=== PATIENT | male | born 1990 | race Caucasian/White ===

== ENCOUNTER 2016-07-01 13:07 | Inpatient (IN) | payer OTHER ==
[2016-07-01 14:01] LABS: % IMMATURE GRANULYOCYTES 0.7 % (0.0-1.1); ADD DIFF? NO; ADD MORPH? NO; ADD SCAN? NO; ATYPICAL LYMPHOCYTE FLAG 0 (0-99); FRAGMENT RBC FLAG 0 (0-99); HEMATOCRIT 49.1 % (40.0-51.0); HEMOGLOBIN 17.4 g/dL (13.7-17.5); LEFT SHIFT FLG 0 (0-99); LIPEMIA HEMOLYSIS FLAG 90 (0-99); MEAN CELL HEMOGLOBIN 29.3 pg (27.9-34.1); MEAN CELL HEMOGLOBIN CONCENTR. 35.4 g/dL (32.4-36.7); MEAN CELL VOLUME 82.7 fL (81.5-99.8); MEAN PLATELET VOLUME 9.7 fL (8.7-11.7); PLATELET CLUMPS FLAG 10 (0-99); PLATELET COUNT 301 10^3/uL (150-400); RED BLOOD CELL COUNT 5.94 10^6/uL (4.40-6.38); RED CELL DISTRIBUTION WIDTH 12.5 % (11.5-15.2)
--- NOTE | 2016-07-01 14:05 | EDPHY ---
H & P Time Seen by Provider: 07/01/16 13:44 HPI/ROS: CHIEF COMPLAINT: "I'm sorry, I don't understand the code" HISTORY OF PRESENT ILLNESS: The patient is a 26-year-old male presenting with paranoia. According to the patient's roommate, the patient came home from work yesterday and said it was a rough day. He seemed slightly out of it. This morning he seemed more out of it. He started talking about Russians and seemed paranoid. His roommate states the patient has had a similar episode in the past that has required hospitalization.When asked why he is here today, the patient responded "I'm sorry I don't understand the code". He states he was unable to sleep last night. When first asked if the patient does any drugs he responded "it doesn't matter, they will find me anyway". Patient does not use drugs. He reports occasional alcohol use. History is limited due to patient's altered mental status. REVIEW OF SYSTEMS: A comprehensive 10 point review of systems is otherwise negative aside from elements mentioned in the history of present illness. Past Medical/Surgical History: Unobtainable. Social History: Occasional alcohol. No drug use. Smoking Status: Never smoked Physical Exam: General Appearance: Alert, reluctant to talk to me Eyes: Pupils equal and round, no conjunctival pallor or injection ENT, Mouth: Mucous membranes moist Neck: Normal inspection Respiratory: Lungs are clear to auscultation Cardiovascular: Regular rate and rhythm Gastrointestinal: Abdomen is soft and non-tender Neurological: A&O, nonfocal, normal gait Skin: Warm and dry, no rash Extremities: Nontender, no pedal edema Psychiatric: Appears suspicious and paranoid Constitutional: Initial Vital Signs Heart Rate 127 H 07/01/16 13:18 Respiratory Rate 20 07/01/16 13:18 Blood Pressure 146/114 H 07/01/16 13:18 O2 Sat (%) 99 07/01/16 13:18 O2 Delivery Mode Room Air Allergies/Adverse Reactions: No Known Allergies Allergy (Verified 07/01/16 17:27) Home Medications: Medication Instructions Recorded Gabapentin [Neurontin 300 MG (*)] 300 - 600 mg PO DAILY PRN 07/01/16 Herbals/Supplements -Info Only 1 ea PO DAILY 07/01/16 Melatonin [Melatonin 3 MG (*)] 3 mg PO HS PRN 07/01/16 Multivitamins [Multivitamin (*)] 1 each PO DAILY 07/01/16 risperiDONE [Risperidone] 1 - 3 tab PO DAILY 07/01/16 Medical Decision Making ED Course/Re-evaluation: The patient was brought in by his roommate with altered mental status. The patient is very paranoid. He is unable to answer some of my questions. According to the patient's roommate the patient has had other episodes like this in the past, 1 requiring hospitalization. I placed the patient on a M1 hold. 3:00 p.m.: The patient was signed out to Dr. Bazan at shift change, pending psychiatric evaluation. - Data Points Laboratory Results: Laboratory Results 07/01/16 13:51 07/01/16 13:51 Medications Given: Discontinued Medications Gabapentin (Neurontin) 300 mg PO EDNOW ONE Stop: 07/01/16 19:32 Last Admin: 07/01/16 20:33 Dose: 300 mg Sodium Chloride (Ns) 1,000 mls @ 0 mls/hr IV ONCE ONE PRN Reason: Wide Open Stop: 07/01/16 14:40 Last Admin: 07/01/16 14:46 Dose: 1,000 mls Lorazepam (Ativan) 1 mg PO EDNOW ONE Stop: 07/01/16 15:41 Last Admin: 07/01/16 15:47 Dose: 1 mg Risperidone (Risperdal) 1 mg PO BID ASAEL Stop: 12/29/16 08:59 Last Admin: 07/02/16 08:00 Dose: 1 mg Risperidone (Risperdal) 1 mg PO DAILY ONE Stop: 07/02/16 18:14 Last Admin: 07/02/16 20:54 Dose: Not Given Risperidone (Risperdal) 2 mg PO HS ONE Stop: 07/02/16 21:01 Last Admin: 07/02/16 22:11 Dose: Not Given Risperidone (Risperdal-M) 2 mg PO ONCE ONE Stop: 07/03/16 19:01 Last Admin: 07/03/16 18:55 Dose: 2 mg Departure - Departure Disposition: [facility] IP Clinical Impression: Acute psychosis Condition: Good Report Scribed for: Tonya Day Report Scribed by: Lory Carter Date of Report: 07/01/16 Time of Report: 14:05 Physician Review and Approval Statement: 07/01/16 14:05 Portions of this note were transcribed by a medical device assembler. I personally performed the history, physical exam, and medical decision-making; and confirmed the accuracy of the information in the transcribed note.
[2016-07-01 14:28] LABS: ANION GAP 19 mEq/L (8-16); CALCIUM 10.7 mg/dL (8.5-10.4); CARBON DIOXIDE 22 mEq/l (22-31); CHLORIDE 102 mEq/L (97-110); CREATININE 0.8 mg/dL (0.7-1.3); ETHANOL SERUM < 10 mg/dL (0-10); GLOMERULAR FILTRATION RATE > 60; GLUCOSE 175 mg/dL (70-100); POTASSIUM 3.6 mEq/L (3.5-5.2); SODIUM 143 mEq/L (134-144)
[2016-07-01] MEDS ORDERED: NS 1,000 ML IV ONE (14:39)
[2016-07-01 15:15] LABS: SALICYLATE < 1.0 mg/dL (2.0-20.0)
[2016-07-01] MEDS ORDERED: LORazepam 1 MG TAB PO ONE (15:40)
[2016-07-01] MEDS ORDERED: GABAPENTIN 300 MG CAP PO ONE (19:31)
[2016-07-01] MEDS: MELATONIN 3 MG TAB PO SCH (20:33)
[2016-07-01] MEDS ORDERED: ACETAMINOPHEN 325 MG TAB PO PRN (23:05)
[2016-07-02] MEDS: MELATONIN 3 MG TAB PO PRN ×2 (03:24→23:43)
[2016-07-02] MEDS: LORazepam 0.5 MG TAB PO PRN ×2 (03:26→13:05)
[2016-07-02] MEDS: MAGNESIUM HYDROXIDE 30 ML UDCUP PO PRN (06:58)
[2016-07-02] MEDS: OLANZapine 5 MG TAB PO PRN (08:00)
[2016-07-02] MEDS ORDERED: risperiDONE 1 MG TAB PO SCH (09:00)
[2016-07-02] MEDS: MAG HYDROX/AL HYDROX/SIMETH 30 ML UDCUP PO PRN (12:54)
[2016-07-02] MEDS ORDERED: SENNOSIDES 1 TAB PO PRN (16:43)
[2016-07-02] MEDS ORDERED: risperiDONE 1 MG TAB PO ONE (18:13)
[2016-07-02] MEDS ORDERED: risperiDONE 2 MG TAB PO ONE ×2 (18:14→21:00)
--- NOTE | 2016-07-02 18:47 | BCON ---
[f rep st] BEHAVIORAL HEALTH CONSULTATION INTERNAL MEDICINE CONSULTATION DATE OF CONSULTATION: 07/02/2016 REFERRING PHYSICIAN: Aria Monteiro MD REASON FOR REFERRAL: Medical clearance for inpatient behavioral health stay. HISTORY OF PRESENT ILLNESS: The patient came to the emergency department with paranoia. He was evaluated by the mental health team and admitted for further psychiatric care. He currently complains of constipation x2-3 days and he has an itchy rash in his groin. PAST MEDICAL HISTORY: He has had right knee pain which resolved with physical therapy. He has had wisdom teeth extraction and LASIK eye surgery. MEDICATIONS: Prior to admission. 1. Melatonin 3 mg p.o. q.h.s. p.r.n. 2. Risperidone 1-3 tabs p.o. q. day. 3. Multivitamin q. day. 4. Gabapentin 300-600 mg p.o. q. day p.r.n. 5. On the [facility] evaluation, also was listed lorazepam on a p.r.n. basis. ALLERGIES: There are no known drug allergies. SOCIAL HISTORY: He is single. He lives with a roommate. He has a job. He is a nonsmoker and does not use alcohol or other substances of abuse. FAMILY HISTORY: There is apparently a history of alcohol abuse in his parents but that was remote and they are currently sober. REVIEW OF SYSTEMS: Other than as in HPI, a 10-point Review of Systems was conducted and was negative. PHYSICAL EXAMINATION: VITALS: Blood pressure is 137/92, heart rate is 120 at 1301 today. Previously, it has been in the 80s and 90s, but 127 when he was first presented. Blood pressure has ranged as high as 146/114. Respiratory rate is 20. Oxygen saturation is 95% on room air. Temperature is 35.9 degrees centigrade. His weight is 74.8 kg for a body mass index of 23. GENERAL: This is a well-nourished, well-developed man, appears his chronologic age, cooperative, and in no acute distress. HEENT: Extraocular movements are intact. Pupils are equal, round, and reactive to light. Mucous membranes are moist. Dentition is in good condition. NECK: Supple. HEART: There is a regular rate and rhythm with no murmurs, rubs, or gallops, and he is not tachycardic on exam. LUNGS: Clear to auscultation bilaterally. ABDOMEN: Soft , nontender, nondistended with normoactive bowel sounds. There is no stool mass palpated. EXTREMITIES: There is no cyanosis, clubbing, or edema. NEUROLOGIC: He is alert and oriented x3. Cranial nerves 2-12 are grossly intact. There is no focal weakness. Sensation is intact to light touch and gait is within normal limits. LABORATORY STUDIES: From the emergency department, hematology showed a CBC with elevated white blood cell count of 13.53. There was no left shift, though it was predominantly neutrophils. Otherwise, CBC was within normal limits. Serum chemistry showed a very mild anion gap of 18, glucose was elevated at 175 , and his calcium was slightly high at 10.7, otherwise renal function and electrolytes were within normal limits. Toxicology screen in the serum was negative for salicylates, acetaminophen, or ethyl alcohol. Toxicology screen in the urine was non-negative for benzodiazepines and was otherwise negative for any substances of abuse. ASSESSMENT/RECOMMENDATIONS: 1. Psychiatric issues, pending further evaluation and management by Psychiatry and the mental health team. 2. Tinea cruris. I have ordered tolnaftate powder. If it persists despite treatment, he can be re-evaluated. 3. Constipation. I have ordered senna on a p.r.n. basis which should be adequate. 4. Elevated blood pressure and leukocytosis. These are most likely due to his psychological stress. Advise continued blood pressure monitoring. If it remains elevated, would consider starting an antihypertensive. In any case, he can follow up on both of these issues with his primary care provider after his discharge. /[id number]/MODL MTDD
[2016-07-02] MEDS: TOLNAFTATE TP SCH (21:01)
[2016-07-02] MEDS: MELATONIN 3 MG TAB PO SCH (22:10)
[2016-07-02] MEDS: LORazepam 1 MG TAB PO SCH (22:10)
[2016-07-02] MEDS: GABAPENTIN 300 MG CAP PO SCH (22:10)
[2016-07-03] MEDS: LORazepam 0.5 MG TAB PO PRN ×3 (00:42→15:00)
[2016-07-03] MEDS: MAGNESIUM HYDROXIDE 30 ML UDCUP PO PRN (03:28)
--- NOTE | 2016-07-03 08:19 | BAPA ---
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 Butler- his private psychiatrist. The patient was admitted to [address] [place] [address] on an M1 hold for complaints of an acute psychotic decompensation. He self-referred to the emergency room with his roommate, was cleared medically and psychiatrically, deemed gravely disabled and sent on to [address] [place] [address] for admission. HISTORY OF PRESENT ILLNESS: The patient has a chronic history of at least 2 similar psychotic decompensations for which he was hospitalized briefly; these occurred in 2008 and 2010. The initial episode occurred as a wesley in college at [employer]. 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 Intake data suggests that both decompensations were brief and occurred in stressful context-details unclear. More recently, the patient describes a vacation trip to [place] within the past several months. He states he visited concentration camps and immersed himself in the [place] history covering the period, particularly involving the Holocaust. He states this was emotionally stressful, created anxiety and may have initiated an element of disorganized thinking. 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 More acutely, his roommate of 2 years noted the patient was complaining to him of stress at work within the last several days. The day prior to admission, the patient's roommate observed the patient manifesting a disorganized pattern of thought. The patient apparently did not sleep overnight, and on the day of admission was noted by the roommate to be loosely associated, paranoid, with worsening disorganization. The patient cooperated with his roommate driving him to the [facility] emergency room. Emergency room physician found the patient to be calm, "pleasant", but grossly disorganized. Roommate reported the history of previous decompensations in 2008 and 2010 as referenced, in which patient had presented in a similar way, to the best of the roommate's understanding. On physical examination in the emergency room, the patient's pulse was noted to be 127 and blood pressure 146/114. Otherwise, physical exam other than mental status was unremarkable. Lab screens included a CBC, BMP, toxic screen, blood alcohol level. Notable findings were an increased WBC at 13.5, and increased blood glucose at 175. Toxic screen was positive for benzodiazepines. Patient's home medications were noted to be Ativan 1 mg daily p.r.n., Gabapentin-unknown dosing, Melatonin-unknown dosing. Patient also has had Risperdal prescribed by his community psychiatrist Dr. Butler-dosing unclear. The patient was initially too disorganized to give any coherent history when seen by [facility]. The patient did receive 1 L of normal saline IV and was seen on a 2nd contact by [facility]LC after his IV hydration. Reportedly his vital signs normalized and his mental status improved partially,such that he could respond in a more organized fashion to questions during the [facility] consultation. The patient stated "I've been here in that place before in 2008 and 2010." He also commented "today I was in shambles." While patient did evidence paranoid ideation, word-finding problems, and on initial contact "word salad.", he was able to report his psychiatric history included 2 brief inpatient hospitalizations in 2008 and 2010. He said "it's possible." he was diagnosed with Schizoaffective disorder Bipolar type remotely. He did acknowledge 1 suicide attempt in 2010 associated with his acute psychosis. Patient stated he drank an unknown household cleaner industrial prior to his being hospitalized as an inpatient in 2010. Because of the acute mental status findings as referenced, patient was deemed gravely disabled and sent on to [address] [place] [address] for admission on an M1 hold. PSYCHIATRIC PAST HISTORY: As referenced above. In my initial contact with the patient he did provide narrative consistent with the above content. He also added that he has had extended periods of outpatient care following each hospitalization in both 2008 and 2010. He states he has had a positive response to Risperdal on both occasions. He reported getting off the Risperdal after extended periods of stability. He states that Dr. Butler, his community psychiatrist, did prescribe Neurontin, Ativan, and in recent months had provided him a Risperdal prescription to use p.r.n. if he noted his thought process beginning to disorganize. It is unclear if patient had been taking Risperdal at any time through this prior illness episode. MEDICAL HISTORY: No active medical problems. 1. S/P history of RLS. 2. LASIK surgery-April 2016. 3. Superior tooth extraction-2011. ALLERGIES: The patient has no known medication or food allergies; he does state he may have "seasonal allergies." REVIEW OF SYSTEMS: Negative. SUBSTANCE ABUSE HISTORY: The patient denies current substance abuse. He does state he smoked THC for a period of 1 to2 years in the past, but did experience "paranoid ideation" and has not used cannabis for an extended period. The patient states he is a "light" user of alcohol. LEGAL HISTORY: Patient denies current or past history of legal issues. PERSONAL HISTORY/FAMILY HISTORY: Patient was born and raised by his biologic family in the [facility]. He states his parents remain ; both parents had a remote history of alcohol use problems. The patient has 2 older sisters. Patient denies a history of abuse and/or trauma. He did relate to [facility] that he was bullied in grade school and that he had a "reading disorder" which was corrected. The patient is a college graduate from [employer] with a major in electrical engineering. The patient went to work full-time for the same company which employs him in [place]. His work career spans at least 4 years. He was transferred to work in [place] as a promotion by his company. He states he is socially isolated since living in [place] for the past 2 years. ADMISSION MENTAL STATUS EXAM: On direct exam the patient is noted to have a normal gait and station, is cooperative, engaging in the initial session. The patient presents as kempt, calm, and conversant. His mood is relatively neutral. Affective expression is mildly constricted in range and mildly blunted. His thought process evidenced i circumscribed BEKA, circumscribed paranoid ideation. The patient's reality testing is partially intact and he is aware of disturbances in his thought pattern. He associates the disturbed thinking to external stresses in his life associated with pressure at work and, as referenced above, anxiety which was activated in his recent vacation trip to [place]. He also describes a chronic problem with stable sleep, which had intensified over the week prior to this admission. His thought process is concrete and somewhat disjointed. Memory functioning is intact across immediate , recent, and remote domains. Intelligence appears average referencing his vocabulary, language syntax, fund of information. Impulse control is intact, insight poor to fair, judgment fair. The patient is clearly invested in the inpatient intervention, does recognize his state of disturbance as similar to 2 previous apparent brief psychotic decompensations as referenced in the above narrative. ADL functions appear intact and appropriate for his age. Session focuses on staging current mental status, obtaining syndromal and treatment history, and overview of lifeline history. FORMULATION: The patient presents as a 26-year-old single white male, who is admitted to [address] [place] [address] for complaints of an acute psychotic decompensation. Primary stresses impacting patient includes work pressure, recent vacation to [place] in which patient studied Nazi history and visited concentration camps in [place]. His decompensation may have initially begun in a nuanced manner during or following the vacation in the past 2 to 3 weeks. His mental status did not appear acutely disorganized until several days prior to this admission. He has had at least 2 previous psychotic decompensations which apparently were also stress driven and responded rapidly to Risperdal and brief inpatient hospitalizations. Focus of inpatient treatment will be to re- stabilize mental status, establish his syndromal history with expedited collateral contacts with his community psychiatrist, Dr. Butler, and his friend and roommate of 2 years with whom he lives currently. ADMISSION DIAGNOSTIC IMPRESSION: [place] I: 1. Psychosis not otherwise specified-recurrent, stress-reactive, current exacerbation associated with paranoid ideation, question audio and/or visual hallucinations, suicidal ideation. 2. Rule out Major Psychotic Disorder-type other. 3. Rule out Substance-induced Psychosis-toxic screen negative; history not suggestive. [place] II: Deferred. [place] III: No active medical problems. 1. Status post history of restless legs syndrome. 2. LASIK surgery 04/30. 3. Superior teeth extraction 2011. [place] IV: Recent vacation to [place] in which patient studied Nazi history of [place] associated with the Holocaust; post this recent vacation, patient reports major work stress. [place] V: Admission Global Assessment of Functioning 35. INITIAL TREATMENT PLAN: 1. Nursing: Completed admission assessment; monitor patient for safety and suicidality; reinforce compliance with cares and medications; orient patient to the unit community and group program and encourage participation. 2. Psychiatry: Completed admission assessment; provide daily E/M contacts to formulate diagnosis, assess and manage psychoactive medication needs, provide reintegrated psychotherapeutic contacts and ally patient to follow up at discharge to linked resources. 3. Clinical Coordinator: Provide daily contacts to expand the intake database including contact relevant collaterals; identify and link patient to post discharge treatment resources. 4. Admission medical consultation: Pending. 5. Medications: Will initiate Risperdal at 3 mg daily doses, Ativan 1 mg h.s. ; will contact Dr. Butler for case review including medication needs in first phase. 6. Prioritized inpatient goals: Stabilize mental status sufficiently for discharge; complete diagnostic workup to formulate definitive discharge plan; discharge patient to linked discharge resources. /[id number]/MODL MTDD
[2016-07-03] MEDS: TOLNAFTATE TP SCH ×2 (09:16→21:48)
[2016-07-03] MEDS: OLANZapine 5 MG TAB PO PRN (14:54)
[2016-07-03] MEDS: LORazepam 1 MG TAB PO SCH (18:55)
[2016-07-03] MEDS ORDERED: RISPERIDONE 2 MG ODT TAB PO ONE (19:00)
[2016-07-03] MEDS: MELATONIN 3 MG TAB PO SCH (21:48)
[2016-07-03] MEDS: GABAPENTIN 300 MG CAP PO SCH (21:48)
--- NOTE | 2016-07-03 22:56 | SOAPPROG ---
SOAP Progress Note Assessment/Plan: Assessment: 26yo with 3rd time psychotic episode since 2008 necessitating inpatient psych, hx of responding well to risperdal. Continues disorganized in behavior and speech 07/03/16 17:31 Per staff, slept 1.5 hrs. Earlier in day several times walked into nursing station appearing disorganized (staff tried to explain why no pts allowed in nsg station, pt seemed with difficulty processing this excess of information), needed frequent redirection by staff to eventually leave nsg area. Cooperative CM, neatly/casually dressed, good eye contact, nml vol speech, rate was nml when pt did respond briefly, mouth appeared dry, Denied any SI. Remarkably disorganized in speech, thoughts and behavior. Notable thought- blocking, staring blankly at times, unable to formulate and express coherent thoughts, but able to state "yes" when simply asked if having problem with thinking clearly, able to state thoughts are "going back and forth and back and forth". Responds more consistently to simple commands or yes/no questions. Denied physical complaints, and did not appear in physical discomfort. Did not respond to whether hearing voices. Appeared anxious, guarded, paranoid/ hypervigilant, with thought-blocking. Seems to have insight into his psychosis and related distress. Ambulates steady, no tremor or gait disturbance noted. Plan: Will give Risperdal 2mg once today, M-tab formulation, also 1mg Ativan. Took no antipsychotics since admission, has been refusing due to paranoia and disorganization. Will schedule 1mg BID and 1mg qd prn, also schedule Ativan 1mg bid for now, and continue Ativan prn which can help with any catatonia as well. Benadryl 25mg Qhs, may repeat x 1, for sleep and in case of EPS Cont safety prec, STC Objective: Vital Signs Temp Pulse Resp BP Pulse Ox 32.7 C L 101 H 20 144/86 H 98 07/03/16 13:45 07/03/16 19:07 07/03/16 19:07 07/03/16 19:07 07/03/16 19:07 - Time Spent With Patient Time Spent With Patient: 25min - Pending Discharge Pending Discharge Within 24 Hours: No Pending Discharge Within 48 Hours: No ICD10 Worksheet Patient Problems: Problems Problem Status Onset Acute psychosis Acute
[2016-07-03] MEDS ORDERED: diphenhydrAMINE 25 MG CAP PO PRN (23:01)
[2016-07-04] MEDS: TOLNAFTATE TP SCH ×3 (08:42→21:11)
[2016-07-04] MEDS ORDERED: RISPERIDONE 1 MG ODT TAB SL SCH (09:00)
[2016-07-04] MEDS: RISPERIDONE ODT 0.5 MG TAB SL PRN ×2 (12:46→13:20)
--- NOTE | 2016-07-04 12:56 | SOAPPROG ---
SOAP Progress Note Assessment/Plan: Assessment: 26yo with 3rd time psychotic episode since 2008 necessitating inpatient psych, hx of responding well to risperdal. Continues disorganized in behavior and speech 07/03/16 17:31 Per staff, slept 1.5 hrs. Earlier in day several times walked into nursing station appearing disorganized (staff tried to explain why no pts allowed in nsg station, pt seemed with difficulty processing this excess of information), needed frequent redirection by staff to eventually leave nsg area. Cooperative CM, neatly/casually dressed, good eye contact, nml vol speech, rate was nml when pt did respond briefly, mouth appeared dry, Denied any SI. Remarkably disorganized in speech, thoughts and behavior. Notable thought- blocking, staring blankly at times, unable to formulate and express coherent thoughts, but able to state "yes" when simply asked if having problem with thinking clearly, able to state thoughts are "going back and forth and back and forth". Responds more consistently to simple commands or yes/no questions. Denied physical complaints, and did not appear in physical discomfort. Did not respond to whether hearing voices. Appeared anxious, guarded, paranoid/ hypervigilant, with thought-blocking. Seems to have insight into his psychosis and related distress. Ambulates steady, no tremor or gait disturbance noted. Plan: Will give Risperdal 2mg once today, M-tab formulation, also 1mg Ativan. Took no antipsychotics since admission, has been refusing due to paranoia and disorganization. Will schedule 1mg BID and 1mg qd prn, also schedule Ativan 1mg bid for now, and continue Ativan prn which can help with any catatonia as well. Benadryl 25mg Qhs, may repeat x 1, for sleep and in case of EPS Cont safety [facility], [facility] 07/04/16 12:43 Per staff, again only slept 1.5hr. Has been compliant with meds now, and is improving with incr thought organization and incr orgzd behaviors. Still reports mind not being right, does not feel near baseline, and notes poor sleep not helping. Requests IM Haldol for tonight which he received in ER setting in the past. Prefers this to po. Wants to take a med now b/c psychotic experiences "come and go". Did not receive take prn for sleep last pm, was disorganized and put pill in pocket and walked around as staff tried to retrieve med. Talked of a satanic ritual going on in hallway yesterday and wondered whether home health care physician was real or not. Denied med s/e. calm, cooperative, good eye contact, polite, mood "okay", affect slightly restricted, not feeling depressed or irritable, no demarcus, much less evid of thought blocking today, some guarding but able to talk about his psychotic experiences yesterday with somewhat puzzled expression. denies current si/hi or current ah/vh. no clear ideas of reference. mentioned seeing someone with bike outside this am, who then oddly disappeared. Plan: Sched Risp 1mg TID Sched HS Benadryl 25mg for sleep and to offset any EPS (none presently evident) Sched Ativan 1mg at HS, cont prn Ativan cont on STC, safety prec Objective: Vital Signs Temp Pulse Resp BP Pulse Ox 32.7 C L 101 H 20 144/86 H 98 07/03/16 13:45 07/03/16 19:07 07/03/16 19:07 07/03/16 19:07 07/03/16 19:07 - Time Spent With Patient Time Spent With Patient: 25min - Pending Discharge Pending Discharge Within 24 Hours: No Pending Discharge Within 48 Hours: No ICD10 Worksheet Patient Problems: Problems Problem Status Onset Acute psychosis Acute
[2016-07-04] MEDS ORDERED: risperiDONE 1 MG TAB PO SCH (16:00)
[2016-07-04] MEDS: RISPERIDONE 1 MG ODT TAB SL SCH ×2 (17:02→20:16)
--- NOTE | 2016-07-04 17:40 | SOAPPROG ---
SOAP Progress Note Assessment/Plan: Assessment: 26yo with 3rd time psychotic episode since 2008 necessitating inpatient psych, hx of responding well to risperdal. Continues disorganized in behavior and speech 07/03/16 17:31 Per staff, slept 1.5 hrs. Earlier in day several times walked into nursing station appearing disorganized (staff tried to explain why no pts allowed in nsg station, pt seemed with difficulty processing this excess of information), needed frequent redirection by staff to eventually leave nsg area. Cooperative CM, neatly/casually dressed, good eye contact, nml vol speech, rate was nml when pt did respond briefly, mouth appeared dry, Denied any SI. Remarkably disorganized in speech, thoughts and behavior. Notable thought- blocking, staring blankly at times, unable to formulate and express coherent thoughts, but able to state "yes" when simply asked if having problem with thinking clearly, able to state thoughts are "going back and forth and back and forth". Responds more consistently to simple commands or yes/no questions. Denied physical complaints, and did not appear in physical discomfort. Did not respond to whether hearing voices. Appeared anxious, guarded, paranoid/ hypervigilant, with thought-blocking. Seems to have insight into his psychosis and related distress. Ambulates steady, no tremor or gait disturbance noted. Plan: Will give Risperdal 2mg once today, M-tab formulation, also 1mg Ativan. Took no antipsychotics since admission, has been refusing due to paranoia and disorganization. Will schedule 1mg BID and 1mg qd prn, also schedule Ativan 1mg bid for now, and continue Ativan prn which can help with any catatonia as well. Benadryl 25mg Qhs, may repeat x 1, for sleep and in case of EPS Cont safety [facility], [facility] 07/04/16 12:43 Per staff, again only slept 1.5hr. Has been compliant with meds now, and is improving with incr thought organization and incr orgzd behaviors. Still reports mind not being right, does not feel near baseline, and notes poor sleep not helping. Requests IM Haldol for tonight which he received in ER setting in the past. Prefers this to po. Wants to take a med now b/c psychotic experiences "come and go". Agrees to midday dose risperdal today. Did not receive take prn for sleep last pm, was disorganized and put pill in pocket and walked around as staff tried to retrieve med. Talked of a satanic ritual going on in hallway yesterday and wondered whether career resource technician was real or not. Denied med s/e. calm, cooperative, good eye contact, polite, mood "okay", affect slightly restricted, not feeling depressed or irritable, no demarcus, much less evid of thought blocking today, some guarding but able to talk about his psychotic experiences yesterday with somewhat puzzled expression, attributing psychotic experiences to not getting sleep. denies current si/hi or current ah/vh. no clear ideas of reference. mentioned seeing someone with bike outside this am, who then oddly disappeared. +insight into need for meds. Plan: Sched Risp 1mg TID Sched HS Benadryl 25mg for sleep and to offset any EPS (none presently evident). Sched Ativan 1mg at HS, cont prn Ativan cont on STC, safety prec 07/04/16 17:40 Objective: Vital Signs Temp Pulse Resp BP Pulse Ox 36.5 C 100 16 132/98 H 98 07/04/16 16:59 07/04/16 16:59 07/04/16 16:59 07/04/16 16:59 07/04/16 16:59 - Time Spent With Patient Time Spent With Patient: 25min - Pending Discharge Pending Discharge Within 24 Hours: No Pending Discharge Within 48 Hours: No ICD10 Worksheet Patient Problems: Problems Problem Status Onset Acute psychosis Acute
[2016-07-04] MEDS: LORazepam 1 MG TAB PO SCH (20:09)
[2016-07-04] MEDS: diphenhydrAMINE 25 MG CAP PO SCH (20:09)
[2016-07-04] MEDS: LORazepam 0.5 MG TAB PO PRN (21:40)
[2016-07-05] MEDS: TOLNAFTATE TP SCH ×2 (08:21→21:48)
[2016-07-05] MEDS: RISPERIDONE 1 MG ODT TAB SL SCH (08:21)
[2016-07-05] MEDS: LORazepam 0.5 MG TAB PO PRN (14:43)
--- NOTE | 2016-07-05 15:39 | SOAPPROG ---
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 ASSESSMENT/PLAN: partially improved; residual IOR; no perceptual confusion/ will change Risperdal 1 mg tid to tablet form; reintegrative CP d/w Nursing in Rounds Objective: Vital Signs Temp Pulse Resp BP Pulse Ox 36.4 C 98 17 128/81 H 98 07/05/16 15:01 07/05/16 15:01 07/05/16 15:01 07/05/16 15:01 07/05/16 15:01 ICD10 Worksheet Patient Problems: Problems Problem Status Onset Acute psychosis Acute
[2016-07-05] MEDS: risperiDONE 1 MG TAB PO SCH ×2 (15:56→21:48)
[2016-07-05] MEDS: MAG HYDROX/AL HYDROX/SIMETH 30 ML UDCUP PO PRN (20:57)
[2016-07-05] MEDS: LORazepam 1 MG TAB PO SCH (21:48)
[2016-07-05] MEDS: diphenhydrAMINE 25 MG CAP PO SCH (21:48)
--- NOTE | 2016-07-06 06:11 | SOAPPROG ---
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 ASSESSMENT/PLAN: partially improved; residual IOR; no perceptual confusion/ will change Risperdal 1 mg tid to tablet form; reintegrative CP d/w Nursing in Rounds 07/06/16 DAY UPDATE:' Objective: Vital Signs Temp Pulse Resp BP Pulse Ox 36.7 C 92 12 126/73 H 98 07/05/16 18:15 07/05/16 18:15 07/05/16 18:15 07/05/16 18:15 07/05/16 18:15 ICD10 Worksheet Patient Problems: Problems Problem Status Onset Acute psychosis Acute
[2016-07-06] MEDS: TOLNAFTATE TP SCH ×2 (08:12→20:52)
[2016-07-06] MEDS: risperiDONE 1 MG TAB PO SCH ×3 (08:12→20:52)
--- NOTE | 2016-07-06 12:32 | SOAPPROG ---
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 ASSESSMENT/PLAN: partially improved; residual IOR; no perceptual confusion/ will change Risperdal 1 mg tid to tablet form; reintegrative CP d/w Nursing in Rounds 07/06/16 11:30 DAY UPDATE:'Nursing reports improved sleep, c/w cares and meds, more visibility in social milieu and attending groups with more participation/ on exam reflects gains as reverenced by Nursing - hurtado affective expression, more kempt appearance, less expressed IOR and sense of witholding/guardedness; meds discussed and pt's fears abut using Ativan addressed as did not take 1mg hs last night and sleep while better is still compromised; also discussed pt's interest in referral to psychotherapist which is supported by Dr. Unger ASSESSMENT/PLAN: continued improvement descriptively; pt more aware of and disclosing relevant issues a/w career path, social isolation, ? sexual identity and interest in f/u psychotherapy/ no changes in medications and CP as reviewed with Nursing Objective: Vital Signs Temp Pulse Resp BP Pulse Ox 36.5 C 71 14 122/59 H 97 07/06/16 06:00 07/06/16 06:00 07/06/16 06:00 07/06/16 06:00 07/06/16 06:00 ICD10 Worksheet Patient Problems: Problems Problem Status Onset Acute psychosis Acute
[2016-07-06] MEDS: diphenhydrAMINE 25 MG CAP PO SCH (20:52)
[2016-07-06] MEDS: LORazepam 1 MG TAB PO SCH (20:52)
[2016-07-07] MEDS: risperiDONE 1 MG TAB PO SCH ×3 (09:03→16:26)
[2016-07-07] MEDS: TOLNAFTATE TP SCH ×2 (09:10→21:04)
--- NOTE | 2016-07-07 16:36 | SOAPPROG ---
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 ASSESSMENT/PLAN: partially improved; residual IOR; no perceptual confusion/ will change Risperdal 1 mg tid to tablet form; reintegrative CP d/w Nursing in Rounds 07/06/16 11:30 DAY UPDATE:'Nursing reports improved sleep, c/w cares and meds, more visibility in social milieu and attending groups with more participation/ on exam reflects gains as refinerenced by Nursing - hurtado affective expression, more kempt appearance, less expressed IOR and sense of witholding/guardedness; meds discussed and pt's fears abut using Ativan addressed as did not take 1mg hs last night and sleep while better is still compromised; also discussed pt's interest in referral to psychotherapist which is supported by Dr. Unger ASSESSMENT/PLAN: continued improvement descriptively; pt more aware of and disclosing relevant issues a/w career path, social isolation, ? sexual identity and interest in f/u psychotherapy/ no changes in medications and CP as reviewed with Nursing 07/07/16 16:25 DAY ' UPDATE: Nursing reports improved sleep to 6 hrs; c/w all hs meds; on individual contacts pt at times appears confused or hesitant in replies ON EXAM: on direct exam pt is relatively organized but still evidences odd associative pattern at times; also today brings up ? of possible use of short- term disability and then moves on to discuss ongoing preoccupation with work; remains organized as he states he feels "over my head" in preparing his current project at work for presentation in his work group; he states he "needs help" with inputs from colleagues at work but has not felt ready to ask for it; does agree that he's improving and that returning to work at [employer] is "probably a better idea that to try to stay away on disability; meds reviewed with changes as referenced Assessment/Plan:paced recompensation continues b/w evidence for residual thought disorder/ will change Risperdal to bid dosing at 1/2 mg qd; o/w no meds changes and management plan unchanged as d/w Nursing Objective: Vital Signs Temp Pulse Resp BP Pulse Ox 36.6 C 60 14 122/74 H 100 07/07/16 06:00 07/07/16 08:30 07/07/16 08:30 07/07/16 08:30 07/07/16 08:30 ICD10 Worksheet Patient Problems: Problems Problem Status Onset Acute psychosis Acute
[2016-07-07] MEDS ORDERED: risperiDONE 2 MG TAB PO SCH (21:00)
[2016-07-07] MEDS: LORazepam 1 MG TAB PO SCH (21:02)
[2016-07-07] MEDS: diphenhydrAMINE 25 MG CAP PO SCH (21:02)
--- NOTE | 2016-07-08 06:48 | SOAPPROG ---
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 ASSESSMENT/PLAN: partially improved; residual IOR; no perceptual confusion/ will change Risperdal 1 mg tid to tablet form; reintegrative CP d/w Nursing in Rounds 07/06/16 11:30 DAY ' UPDATE:'Nursing reports improved sleep, c/w cares and meds, more visibility in social milieu and attending groups with more participation/ on exam reflects gains as refinerenced by Nursing - hurtado affective expression, more kempt appearance, less expressed IOR and sense of witholding/guardedness; meds discussed and pt's fears abut using Ativan addressed as did not take 1mg hs last night and sleep while better is still compromised; also discussed pt's interest in referral to psychotherapist which is supported by Dr. Unger ASSESSMENT/PLAN: continued improvement descriptively; pt more aware of and disclosing relevant issues a/w career path, social isolation, ? sexual identity and interest in f/u psychotherapy/ no changes in medications and CP as reviewed with Nursing 07/07/16 16:25 DAY ' UPDATE: Nursing reports improved sleep to 6 hrs; c/w all hs meds; on individual contacts pt at times appears confused or hesitant in replies ON EXAM: on direct exam pt is relatively organized but still evidences odd associative pattern at times; also today brings up ? of possible use of short- term disability and then moves on to discuss ongoing preoccupation with work; remains organized as he states he feels "over my head" in preparing his current project at work for presentation in his work group; he states he "needs help" with inputs from colleagues at work but has not felt ready to ask for it; does agree that he's improving and that returning to work at [place] is "probably a better idea that to try to stay away on disability"; meds reviewed with changes as referenced Assessment/Plan:paced recompensation continues b/w evidence for residual thought disorder/ will change Risperdal to bid dosing at 1/2 mg qd; o/w no meds changes and management plan unchanged as d/w Nursing 07/08/16 DAY ' UPDAGTE: Objective: Vital Signs Temp Pulse Resp BP Pulse Ox 36.5 C 76 12 118/69 99 07/08/16 06:38 07/08/16 06:38 07/08/16 06:38 07/08/16 06:38 07/08/16 06:38 ICD10 Worksheet Patient Problems: Problems Problem Status Onset Acute psychosis Acute
[2016-07-08] MEDS: TOLNAFTATE TP SCH ×2 (08:33→21:32)
[2016-07-08] MEDS ORDERED: risperiDONE 1 MG TAB PO SCH (09:00)
--- NOTE | 2016-07-08 16:04 | SOAPPROG ---
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 ASSESSMENT/PLAN: partially improved; residual IOR; no perceptual confusion/ will change Risperdal 1 mg tid to tablet form; reintegrative CP d/w Nursing in Rounds 07/06/16 11:30 DAY ' UPDATE:'Nursing reports improved sleep, c/w cares and meds, more visibility in social milieu and attending groups with more participation/ on exam reflects gains as refinerenced by Nursing - hurtado affective expression, more kempt appearance, less expressed IOR and sense of witholding/guardedness; meds discussed and pt's fears abut using Ativan addressed as did not take 1mg hs last night and sleep while better is still compromised; also discussed pt's interest in referral to psychotherapist which is supported by Dr. Unger ASSESSMENT/PLAN: continued improvement descriptively; pt more aware of and disclosing relevant issues a/w career path, social isolation, ? sexual identity and interest in f/u psychotherapy/ no changes in medications and CP as reviewed with Nursing 07/07/16 16:25 DAY ' UPDATE: Nursing reports improved sleep to 6 hrs; c/w all hs meds; on individual contacts pt at times appears confused or hesitant in replies ON EXAM: on direct exam pt is relatively organized but still evidences odd associative pattern at times; also today brings up ? of possible use of short- term disability and then moves on to discuss ongoing preoccupation with work; remains organized as he states he feels "over my head" in preparing his current project at work for presentation in his work group; he states he "needs help" with inputs from colleagues at work but has not felt ready to ask for it; does agree that he's improving and that returning to work at [place] is "probably a better idea that to try to stay away on disability"; meds reviewed with changes as referenced Assessment/Plan:paced recompensation continues b/w evidence for residual thought disorder/ will change Risperdal to bid dosing at 1/2 mg qd; o/w no meds changes and management plan unchanged as d/w Nursing 07/08/16 UPDATE/EXAM: Nursing reports pt slept 8 hrs, engaging rx plan effectively in all domains; c/o drowsiness despite improved sleep time? 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 ASSESSMENT/PLAN: continued progress; no overt psychosis; first order insight/ change Risperdal dosing to hs only at 3 mg; DC Benadryl 25 mg hs; prepare pt fpr DC tomorrow PM Objective: Vital Signs Temp Pulse Resp BP Pulse Ox 37.1 C 82 15 122/59 H 97 07/08/16 13:40 07/08/16 13:40 07/08/16 13:40 07/08/16 13:40 07/08/16 13:40 ICD10 Worksheet Patient Problems: Problems Problem Status Onset Acute psychosis Acute
[2016-07-08] MEDS ORDERED: risperiDONE 2 MG TAB PO SCH (21:00)
[2016-07-08] MEDS: LORazepam 1 MG TAB PO SCH (21:32)
[2016-07-09 06:34] VITALS: BP 110/55; PULSE 64; RESP 14; TEMP 98; O2SAT 95
[2016-07-09] MEDS: TOLNAFTATE TP SCH (11:03)
--- NOTE | 2016-07-09 12:16 | SOAPPROG ---
SOAP Progress Note Assessment/Plan: Assessment: Plan: 07/05/16 15:30 DAY ' UPDATE/EXAM: Nursing reports pt has made partial improvement in clearing psychotic acuity and perceptual confusion, c/w meds and cares after initially resisting admission meds as ordered by me on 09/01/ on exam today pt presents as calm, conversant; states his thought process remains with some fears c/w IOR but is improving and denies karo PI; able to disclose in more coherent fashion at least 3 previous episodes of transient psychoses, most recently 18 months ago in context of work stress as in current context [employer]; he denies any awareness of disorganization when he returned from his vacation abroad in mid May; meds discussed in detail and he stated he'd prefer to take Risperdal 1 mg tid in standard capsule form vs the currently prescribed SL version. ASSESSMENT/PLAN: partially improved; residual IOR; no perceptual confusion/ will change Risperdal 1 mg tid to tablet form; reintegrative CP d/w Nursing in Rounds 07/06/16 11:30 DAY ' UPDATE:'Nursing reports improved sleep, c/w cares and meds, more visibility in social milieu and attending groups with more participation/ on exam reflects gains as refinerenced by Nursing - hurtado affective expression, more kempt appearance, less expressed IOR and sense of witholding/guardedness; meds discussed and pt's fears abut using Ativan addressed as did not take 1mg hs last night and sleep while better is still compromised; also discussed pt's interest in referral to psychotherapist which is supported by Dr. Unger ASSESSMENT/PLAN: continued improvement descriptively; pt more aware of and disclosing relevant issues a/w career path, social isolation, ? sexual identity and interest in f/u psychotherapy/ no changes in medications and CP as reviewed with Nursing 07/07/16 16:25 DAY ' UPDATE: Nursing reports improved sleep to 6 hrs; c/w all hs meds; on individual contacts pt at times appears confused or hesitant in replies ON EXAM: on direct exam pt is relatively organized but still evidences odd associative pattern at times; also today brings up ? of possible use of short- term disability and then moves on to discuss ongoing preoccupation with work; remains organized as he states he feels "over my head" in preparing his current project at work for presentation in his work group; he states he "needs help" with inputs from colleagues at work but has not felt ready to ask for it; does agree that he's improving and that returning to work at [place] is "probably a better idea that to try to stay away on disability"; meds reviewed with changes as referenced Assessment/Plan:paced recompensation continues b/w evidence for residual thought disorder/ will change Risperdal to bid dosing at 1/2 mg qd; o/w no meds changes and management plan unchanged as d/w Nursing 07/08/16 14;30 DAY UPDATE/EXAM: Nursing reports pt slept 8 hrs, engaging rx plan effectively in all domains; c/o drowsiness despite improved sleep time? on direct exam saw pt individually and in speaker phone meeting with sister standing in for pt's mother; sister explained that she and mother call pt daily and are both familiar with the work stress factor impacting pt [employer]: productive discussion about improving course, pt need to return to work after holiday on 07/12 and readiness for DC tomorrow; pt acknowledged his need to "get out of my silo" and ask for input from work mates on formulating how to present his part of the project - coherent and logical in discussing this; meds reviewed, DC plan reviewed. ASSESSMENT/PLAN: continued progress; no overt psychosis; first order insight/ change Risperdal dosing to hs only at 3 mg; DC Benadryl 25 mg hs; prepare pt fpr DC tomorrow PM 07/09/16 12:08 Discharge Note DAY UPDATE: Nursing reports pt sustaining improved sleep, evidences no overt psychosis and observable thought process reality-focussed/ on exam pt presents with neutral mood, calm, and conversant; final session focus on reviewing gains descriptively and a/w first order insight, goal post DC including focus in psychotherapy, structure and appointments a/w DC plan; meds also reviewed final time - pt with good understand and alliance with f/u treatment plan; denies SI and appears sufficiently stable for safe DC ASSESSMENT/PLAN: ready for DC DC today - to return to own apartment with roommate f/u appointment with psychiatrist and new psychotherapy referral scheduled in coming week DC medications as referenced; pt given 30 day prescriptions see Discharge Summary 07/09/16 12:15 Medications Generic Name Dose Route Start Last Admin Trade Name Alex PRN Reason Stop Dose Admin Lorazepam 1 mg 07/02/16 21:00 07/08/16 21:32 Ativan PO 12/29/16 20:59 Not Given HS ASAEL Risperidone 3 mg 07/08/16 21:00 07/08/16 21:30 Risperdal PO 01/04/17 20:59 3 mg HS ASAEL Objective: Vital Signs Temp Pulse Resp BP Pulse Ox 36.6 C 64 14 110/55 L 95 07/09/16 00:30 07/09/16 00:30 07/09/16 00:30 07/09/16 00:30 07/09/16 00:30 ICD10 Worksheet Patient Problems: Problems Problem Status Onset Acute psychosis Acute
== END 2016-07-09 13:20 | disposition home or self-care (01) | DRG 885 ==
LOC: EDBD 13:07 → MERGE 22:10 → BBEH 22:10
PROVIDERS: ADMIT Psychiatry & Neurology Behavioral Neurology & Neuropsychiatry; ATTEND Psychiatry & Neurology Behavioral Neurology & Neuropsychiatry
DX: F23 Brief psychotic disorder (principal)
CPT/HCPCS: 80305; G0480